=== PATIENT | female | born 1980 | race Caucasian/White ===

== ENCOUNTER 2017-04-19 23:57 | Emergency (ER) | payer BC ==
[2017-04-20 00:12] VITALS: BP 123/73
--- NOTE | 2017-04-20 02:24 | EDM.PDOC ---
ED HPI GENERAL MEDICAL PROBLEM - General Chief Complaint: Abdominal Pain Stated Complaint: ABDOMINAL PAIN/VOMITING Time Seen by Provider: 04/20/17 01:36 Source of Information: Reports: Patient, Significant Other (Fiance) History Limitations: Reports: No Limitations - History of Present Illness INITIAL COMMENTS - FREE TEXT/NARRATIVE: The patient states that she has been constipated for the past 2 and half days. She took some Dulcolax around 20:00, then developed central abdominal pain and nausea around 23:00. The pain is sharp and stabbing in character, and comes and goes. At present, it is minimal. The patient has felt hot flashes, but has not had a fever. No prior similar symptoms. The patient mentions that both she and her fianc are quitting smoking, and are on Chantix. The patient's PCP is Dr. Chowdary. 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: Psychiatric History: Reports: Anxiety - Past Surgical History GI Surgical History: Reports: Hernia, Inguinal (bilateral, as an infant) Female Surgical History: Reports: Section (x 1) Social & Family History - Tobacco Use Smoking Status *Q: Current Every Day Smoker Years of Tobacco use: 19 Packs/Tins Daily: 1 - Alcohol Use Alcohol Use History: Yes Days Per Week of Alcohol Use: 4 Number of Drinks Per Day: 16 Total Drinks Per Week: 64 - Recreational Drug Use Recreational Drug Use: Yes Drug Use in Last 12 Months: No Recreational Drug Type: Reports: Marijuana/Hashish (last use in high school) - Living Situation & Occupation Living situation: Reports: Single, with Significant Other (Fiance) 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 ED EXAM, GI/ABD - Physical Exam Exam: See Below Exam Limited By: No Limitations General Appearance: Alert, WD/WN, No Apparent Distress Eyes: Bilateral: Normal Appearance, EOMI Ears: Normal External Exam, Hearing Grossly Normal Nose: Normal Inspection, No Blood Throat/Mouth: Normal Inspection, Normal Lips, Normal Voice, No Airway Compromise Head: Atraumatic, Normocephalic Neck: Normal Inspection, Full Range of Motion Respiratory/Chest: No Respiratory Distress, Lungs Clear, Normal Breath Sounds, No Accessory Muscle Use Cardiovascular: Normal Peripheral Pulses, Regular Rate, Rhythm, No Edema, No Gallop, No JVD, No Murmur, No Rub GI/Abdominal Exam: Normal Bowel Sounds, Soft, Non-Tender, No Organomegaly, No Distention, No Abnormal Bruit, No Mass, Pelvis Stable (Female) Exam: Deferred Rectal (Female) Exam: Deferred Back Exam: Normal Inspection, Full Range of Motion. No: CVA Tenderness (L), CVA Tenderness (R) Extremities: Normal Inspection, Normal Range of Motion, No Pedal Edema, Normal Capillary Refill Neurological: Alert, Oriented, Normal Cognition, No Motor/Sensory Deficits Psychiatric: Normal Affect Skin Exam: Warm, Dry, Intact, Normal Color, No Rash Course - Vital Signs Last Recorded V/S: Last Vital Signs Temp 36.2 C 04/20/17 00:10 Pulse 70 04/20/17 00:10 Resp 16 04/20/17 00:10 BP 123/73 04/20/17 00:10 Pulse Ox 96 04/20/17 00:10 - Orders/Labs/Meds Orders: Active Orders 24 hr Category Date Time Status Abdomen 1V Upright [CR] Stat Exams 04/20/17 01:47 Taken Labs: Laboratory Tests 04/20/17 04/20/17 Range/Units 01:52 01:52 Urine Color Yellow (Yellow) Urine Appearance Clear (Clear) Urine pH 6.0 (5.0-8.0) Ur Specific [place] > or = 1.030 (1.005-1.030) Urine Protein Trace H (Negative) Urine Glucose (UA) Negative (Negative) Urine Ketones Negative (Negative) Urine Occult Blood Negative (Negative) Urine Nitrite Negative (Negative) Urine Bilirubin Negative (Negative) Urine Urobilinogen 0.2 (0.2-1.0) Ur Leukocyte Esterase Negative (Negative) Urine RBC 0-5 (0-5) /hpf Urine WBC 0-5 (0-5) /hpf Ur Epithelial Cells 0-5 (0-5) /hpf Urine Bacteria Few (FEW) /hpf Urine Mucus Many H (FEW) /hpf Urine HCG, Qual Negative (NEGATIVE) - Re-Assessments/Exams Free Text/Narrative Re-Assessment/Exam: 04/20/17 02:24 Upright abdominal radiograph appears to demonstrate a nonspecific bowel gas pattern. No air-fluid levels seen. No significant quantity of stool seen. Formal read per the Radiologist pending. 04/20/17 02:43 Test results discussed with the patient and her fianc. Rebecca's workup is unremarkable. Her upright abdominal radiograph shows a nonspecific bowel gas pattern, with no suggestion of a small bowel obstruction. Her urinalysis rules out a UTI. The abdominal pain that the patient has been experiencing is most likely due to intestinal cramps related to the Dulcolax that she took earlier. Going forward, I am recommending that she start taking Metamucil on a regular basis, not only to avoid constipation, but also reduce the risk of colon cancer. Departure - Departure Time of Disposition: 02:43 Disposition: Home, Self-Care 01 Condition: Good Clinical Impression: Abdominal cramps - Discharge Information Instructions: Abdominal Pain, Adult Referrals: PCP,None [Primary Care Provider] - Deja Chowdary MD [Physician] - Forms: ED Department Discharge Additional Instructions: You were seen in the emergency room for intermittent sharp/stabbing abdominal pain. Workup in the ER included a urinalysis, a urine test, and x-rays of your abdomen. Your entire workup was unremarkable. You do not have a urinary tract infection. You are not . The x-ray did not show any signs of a small bowel obstruction. Incidentally, it also did not show a significant amount of stool, either. Your abdominal pain is MOST LIKELY due to intestinal cramping related to the Dulcolax that you took. This should pass in time. Going forward, we recommend that you start taking Metamucil. It is available in a sugar-free, orange flavored smooth powder. Start with a small quantity mixed in a large glass of water, then increase the quantity as tolerated. This will not only help to prevent constipation, but reduce your risk of colon cancer, as well. If the Metamucil is inadequate, you may try MiraLAX. If any other problems, please do not hesitate to return to the ER. - My Orders Last 24 Hours: My Active Orders 04/20/17 01:47 Abdomen 1V Upright [CR] Stat - Assessment/Plan Last 24 Hours: My Active Orders 04/20/17 01:47 Abdomen 1V Upright [CR] Stat
--- NOTE | 2017-04-20 08:50 | CR ---
Abdomen: Upright view of the abdomen was obtained. Comparison: No prior study. Bowel gas pattern appears normal. Calcification seen within the pelvis most likely representing phleboliths. No other abnormal calcifications are identified. No free air is seen. Bony structures are within normal limits. Impression: 1. Nothing acute is seen. Diagnostic code #1
== END 2017-04-20 02:55 | disposition home or self-care (01) ==
LOC: JD.ED 23:57
DX: R10.12 Left upper quadrant pain (principal); R10.11 Right upper quadrant pain; F17.210 Nicotine dependence, cigarettes, uncomplicated; Z79.899 Other long term (current) drug therapy
CPT/HCPCS: 74018; 74018-26; 81001; 81025; 99283; 99284